=== PATIENT | female | born 1990 | race Caucasian/White ===

== ENCOUNTER 2022-10-08 15:14 | Emergency (ER) | payer OTHER, SELFPAY ==
--- NOTE | 2022-10-08 15:21 | ED.FEMALEGU ---
HPI - Female Genitourinary General Chief complaint: Urogenital-Female Stated complaint: std test Time Seen by Provider: 10/08/22 15:21 Source: patient and RN notes reviewed History of Present Illness HPI Narrative: Patient is a 32-year-old female presents to urgent care with complaints of possible STD. Patient states that her partner told her he may be positive for gonorrhea based on ?his recent testing and a lot of bacteria in the urine?. Patient states that she does not have any side effects and was told this news on Thursday. Patient does not have any abnormal vaginal discharge, pain or urinary symptoms. Patient states that she has never tested positive for an STD in the past. Patient is currently breast feeding. No other acute complaints. No acute distress noted. Patient aware of the plan of care. Some parts of this dictation were generated by voice recognition software and may contain typographical and/or grammatical inaccuracies. Related Data Home Medications Medication Instructions Recorded Confirmed citalopram 20 mg tablet (Celexa) 20 mg PO DAILY 03/26/21 10/08/22 Allergies Allergy/AdvReac Type Severity Reaction Status Date / Time ciprofloxacin Allergy Unknown Joint pain Verified 09/30/21 11:33 Review of Systems Review of Systems: CONSTITUTIONAL: Denies fever, chills, or sweats. EYES: Denies visual changes, redness, or discharge. ENT: Denies rhinorrhea, congestion, sore throat, or otalgia. CARDIOVASCULAR: Denies chest pain, palpitations, or edema. RESPIRATORY: Denies cough or dyspnea. GASTROINTESTINAL: Denies abdominal pain, nausea, vomiting, or diarrhea. GENITOURINARY: Denies dysuria or hematuria. SKIN: Denies rash or itching. MUSCULOSKELETAL: Denies back pain, joint pain, or myalgia. NEUROLOGIC: Denies headache, numbness, or weakness. All other systems reviewed are negative, except as documented in HPI. [facility] Past Medical History Medical History (Updated 10/08/22 @ 16:18 by JOHN Frausto) Generalized anxiety disorder History of major depression HLA-B27 spondyloarthropathy Juvenile spondyloarthropathy Surgical History Surgical History Hx of tonsillectomy Family History Family History Mother GERD (gastroesophageal reflux disease) Father Hypertension Anxiety OCD (obsessive compulsive disorder) ADD (attention deficit disorder) Grandparent Stomach cancer Grandparent Lung cancer Other Aneurysm Colon cancer Other BPH (benign prostatic hyperplasia) Vertigo Sibling GERD (gastroesophageal reflux disease) Allergies Social History Social History Smoking status: Never smoker Alcohol intake: never Substance use: never Substance use type: does not use Living arrangements: with family Gender identity (if verbalized by the patient): Female Spiritual care concerns: No Agree to blood products: Yes Comments At the time of my signature, I reviewed and agree with the nursing past medical, surgical, social, and family history. There is no relevant family history pertinent to the patient complaint. Exam Narrative: GENERAL: This is a well-nourished, well-developed patient, in no apparent distress. HEAD: normocephalic, atraumatic. EYES: PERRL. Sclera clear/white. Vision is grossly intact. EARS: External ears normal NOSE: External nose normal with no obvious nasal discharge, nares without redness, no rhinorrhea. THROAT: Mucous membranes moist SKIN: warm, intact with no suspicious lesions or rash, good texture and turgor. NEURO: awake, alert, and oriented to person, place and time. There were no obvious focal neurologic abnormalities. EXTREMITIES: No clubbing, cyanosis, or edema Course Course Level of Care: Express Care Visit Vital Signs Vital signs: Vital Signs Temperature
[2022-10-08 15:28] VITALS: BP 101/65; PULSE 52; RESP 16; TEMP 36.6; O2SAT 100
[2022-10-08] MEDS: cefTRIAXone 1 GM, LIDOCAINE HCL 1% LOCAL INJ 2.1 ML IM (16:15)
== END 2022-10-08 16:40 | disposition home or self-care (01) ==
PROVIDERS: Emergency Provider Nurse Practitioner Family
DX: Z20.2 Contact with and (suspected) exposure to infections with a predominantly sexual mode of transmission (principal); F41.1 Generalized anxiety disorder; F32.9 Major depressive disorder, single episode, unspecified
CPT/HCPCS: 81003; 87491; 87591; 87661; 96372; 99214; G0463; J0696

== ENCOUNTER 2023-04-07 10:15 | Outpatient (CLI) | payer OTHER, SELFPAY ==
--- NOTE | ~2023-04-07 | US_ITS ---
EXAMINATION: US thyroid DATE: 04/07/2023 11:29 INDICATION: Neck swelling. TECHNIQUE: Multiple ultrasound images of the thyroid were obtained. COMPARISON: None. FINDINGS: The right thyroid lobe measures 5.5 x 2.4 x 2.1 cm. The left thyroid lobe measures 4.6 x 1.7 x 1.6 c m. There are ill-defined nodules throughout right thyroid lobe with similar ultrasound appearance. I n the right thyroid lobe, there is a 2.2 cm solid, hypoechoic, wider than tall nodule with ill-define d margin without echogenic foci (TI-RADS TR4). In the left thyroid lobe, there is a 1.6 cm solid, hyp oechoic, wider than tall nodule with ill-defined margin without echogenic foci (TR4). IMPRESSION: 1. Multinodular goiter. Ultrasound-guided fine-needle aspiration of 2 nodules is recommended. Reviewed, dictated and finalized at location A. IMPRESSION: 1. Multinodular goiter. Ultrasound-guided fine-needle aspiration of 2 nodules i s recommended.
== END 2023-04-07 10:16 | disposition home or self-care (01) ==
LOC: ANHIMG 10:35
PROVIDERS: PCP Nurse Practitioner; Visit Provider Nurse Practitioner
DX: R22.1 Localized swelling, mass and lump, neck (principal); E04.2 Nontoxic multinodular goiter
CPT/HCPCS: 76536